=== PATIENT | female | born 1985 | race African-American/Black ===

== ENCOUNTER 2016-09-30 20:39 | Emergency (ER) | payer OTHER ==
[~2016-09-30] VITALS: Ht 162.6 cm; Wt 81.0 kg
[2016-09-30 22:02] VITALS: BP 119/75
[2016-10-01] MEDS ORDERED: TETANUS, DIPHTHERIA, PERTUSSIS VAC/PF 0.5ML (>7YR OLD) IM ONE (02:15)
== END 2016-10-01 02:41 | disposition home or self-care (01) ==
LOC: ER 10-01 02:12
DX: L03.113 Cellulitis of right upper limb (principal); F17.200 Nicotine dependence, unspecified, uncomplicated
CPT/HCPCS: 90471; 90715; 99283; X7700; Z7610

== ENCOUNTER 2019-02-17 22:40 | Emergency (ER) | payer OTHER ==
[~2019-02-17] VITALS: Ht 165.1 cm; Wt 81.0 kg
[2019-02-18] MEDS ORDERED: PENICILLIN G BENZATHINE 1,200,000 UNITS/2ML SYR IM ONE (01:15)
[2019-02-18] MEDS ORDERED: DEXAMETHASONE 10 MG/ML VIAL IM ONE (01:15)
[2019-02-18 02:11] VITALS: BP 128/74
== END 2019-02-18 02:33 | disposition home or self-care (01) ==
LOC: ER 22:40
DX: J02.0 Streptococcal pharyngitis (principal); R59.0 Localized enlarged lymph nodes; Z98.890 Other specified postprocedural states
CPT/HCPCS: 87430; 96372; 99283; J0561; J1100